=== PATIENT | female | born 2000 | race Caucasian/White ===

== ENCOUNTER 2025-03-06 13:43 | Emergency (ER) | payer OTHER, BC, SELFPAY ==
--- NOTE | ~2025-03-06 | XR_ITS ---
EXAMINATION: XR wrist LT min 3V DATE: 03/06/2025 14:29 INDICATION: Generalized left wrist pain post fall TECHNIQUE: Posteroanterior, ulnar deviation, oblique, and lateral views of the left wrist were obtain ed. COMPARISON: none FINDINGS: Dorsally impacted transverse fracture extending across the metaphyseal region of the distal left radi us resulting 11 degree dorsal tilt of the distal articular surface. Subtle lucency projecting over th e junction of the scaphoid and lunate fossa suggesting possible comminution with inter extension of a nondisplaced fracture plane. No other fractures identified. Joint spaces are normal. IMPRESSION: 1. Dorsally impacted fracture of the distal left radius, potentially comminuted with intra-articular extension Reviewed, dictated and finalized at location B.
[2025-03-06 13:56] VITALS: BP 117/63; PULSE 82; RESP 18; TEMP 36.7; O2SAT 99
--- NOTE | 2025-03-06 14:18 | ED_ITS ---
HPI - Extremity Injury (Upper) General Chief Complaint: Extremity Injury, Upper Stated Complaint: INJURED L WRIST Time Seen by Provider: 03/06/25 14:13 Source: patient and RN notes reviewed Mode of arrival: ambulatory Limitations: no limitations History of Present Illness HPI narrative: Patient presents today complaining of left wrist injury. Approximately 2 hours prior to exam, patient tripped over a shopping cart at work and fell onto outstretched left hand. She is having pain generally about the wrist and currently rates it 6/10, which increases with movement. She has applied ice and taken advil prior to arrival with little relief. Denies numbness or tingling in the arm or hand. Decreased range of motion due to pain. Related Data Home Medications ?Medication ?Instructions ?Recorded ?Confirmed ?Last Taken ?Type buspirone 5 mg tablet mg 03/06/25 Unknown History drospirenone 3 mg-ethinyl tablet 03/06/25 Unknown History estradiol 0.02 mg tablet metformin 500 mg tablet,extended mg PO 03/06/25 Unknown History release 24 hr propranolol 10 mg tablet mg 03/06/25 Unknown History Allergies Allergy/AdvReac Type Severity Reaction Status Date / Time pollen extracts Allergy Unknown Unknown Verified 03/06/25 14:03 [facility] Family History Family History Sibling Diabetes mellitus Family history of type 1 diabetes mellitus Father Hypertension Family history of malignant neoplasm Social History Social History Smoking status: Never smoker Alcohol intake: never Comments At time of signature, I have reviewed and agree with nursing past medical, surgical, social and family history unless otherwise noted. Please see nursing chart for further information. There is no relevant family history pertinent to the presenting complaint Exam Narrative: GENERAL: Well-appearing, well-nourished, and in no acute distress. HEAD: Normocephalic, atraumatic. EYES: EOMI. No redness or drainage. Conjunctivae normal. ENT: Mucous membranes pink and moist. NECK: Normal AROM. CHEST: No respiratory distress. EXTREMITIES: Left wrist: Moderate swelling about the wrist with tenderness to the distal radius. Decreased range of motion due to pain. Distal sensation intact in all 5 fingers. Capillary refill normal. Radial pulse normal. + snuffbox tenderness. SKIN: Warm, dry, no rash. Capillary refill normal. Normal skin turgor. NEURO: No focal deficits. Alert and oriented x3. Gait steady. PSYCH: Normal affect. No signs of depression or anxiety. Course Course Level of Care: Express Care Visit Vital Signs Vital signs: Vital Signs Temperature 98.1 F 03/06/25 13:56 Pulse Rate 82 03/06/25 13:56 Respiratory Rate 18 03/06/25 13:56 Blood Pressure 117/63 03/06/25 13:56 Pulse Oximetry 99 03/06/25 13:56 Oxygen Delivery Room Air 03/06/25 13:56 Temperature 98.1 F 03/06/25 13:56 Pulse Rate 82 03/06/25 13:56 Respiratory Rate 18 03/06/25 13:56 Blood Pressure 117/63 03/06/25 13:56 Pulse Oximetry 99 03/06/25 13:56 Oxygen Delivery Room Air 03/06/25 13:56 Reviewed MDM - Extremity Injury (Upper) MDM Narrative Medical decision making narrative: Patient is a 24-year-old female with a left wrist injury after falling on outstretched hand at work today. X-ray shows potentially comminuted distal rad ius fracture. She has been placed in a volar splint and sling for immobilization. Neurovascularly intact before and after placement of the splint. She declines prescription for pain medication at this time. Recommend follow-up with orthopedics or hand specialist for further evaluation and treatment. Vital signs stable. Anticipatory guidance given. Differential Diagnosis Differential diagnosis: Likely sprain and strain of wrist, fracture of wrist and fracture of hand Imaging Data Radiologist's impression: ITS Impressions Wrist X-Ray 03/06/25 15:17 IMPRESSION: 1. Dorsally impacted fracture of the distal left radius, potentially comminuted with intra-articular extension Critical Care Time Critical Care Time Critical Care Time: No Discharge Plan Discharge Clinical Impression: Fracture of distal end of left radius Qualifiers: Encounter type: initial encounter Fracture type: closed Fracture morphology: other intra-articular Qualified Code(s): S52.572A - Other intraarticular fracture of lower end of left radius, initial encounter for closed fracture Patient Disposition: Home Condition: Stable Instructions: Wrist Fracture in Adults (ED) Additional Instructions: Your x-ray shows a fracture in your wrist and you have been placed in a temporary splint. Please keep this dry and intact until follow-up with orth opedics. Elevate and ice the wrist. Take Tylenol or ibuprofen for pain if needed. Please follow-up with your employer regarding workman's compensation. Patient Language: [place] Prescriptions: No Action buspirone 5 mg tablet propranolol 10 mg tablet metformin 500 mg tablet extended release 24 hr PO drospirenone-ethinyl estradiol 3-0.02 mg tablet Follow-up/Referrals: Roderick,Tessa [Other] Sarah Uribe MD [Physician] - Redd Nichols MD [Physician] - Time of Disposition: 15:32
== END 2025-03-06 15:55 | disposition home or self-care (01) ==
PROVIDERS: Emergency Provider Nurse Practitioner
DX: S52.572A Other intraarticular fracture of lower end of left radius, initial encounter for closed fracture (principal); W18.09XA Striking against other object with subsequent fall, initial encounter; E28.2 Polycystic ovarian syndrome
CPT/HCPCS: 29125; 73110; 99214; A4565; G0463